=== PATIENT | female | born 1990 ===

== ENCOUNTER 2018-10-13 06:17 | Inpatient (IN) ==
[2018-10-13] MEDS ORDERED: ONDANSETRON 4 MG/2 ML VIAL IV PRN (06:27)
[2018-10-13] MEDS ORDERED: LACTATED RINGERS 250 ML IV ONE (06:27)
[2018-10-13] MEDS ORDERED: LACTATED RINGERS 1,000 ML IV SCH (06:30)
[2018-10-13] MEDS ORDERED: OXYTOCIN/LR 20 UNIT/1,000 ML BAG IV SCH (06:30)
[2018-10-13] MEDS ORDERED: CITRIC ACID/SODIUM CITRATE 30 ML UDCUP PO ONE (06:31)
[2018-10-13 07:00] LABS: Basophils % 0.5 % (0.0-0.8); Eosinophils # 0.1 10*3/uL (0.0-0.87); Eosinophils % 0.9 % (0.00-10.9); Hematocrit 37.3 VOL% (35.7-47.0); Hemoglobin 12.4 GM/DL (12.0-16.0); Immature Granulocytes % 0.4 %; Immature Granulocytes Absolute 0.03 #; Lymphocytes # 2.6 10*3/uL (1.4-4.0); Lymphocytes % 35.3 % (21.3-54.2); Mean Corpuscular HGB Conc 33.2 GM/DL (32-36); Mean Corpuscular Volume 85.9 FL (87-102); Mean Platelet Volume 9.8 FL (9.6-12.0); Monocytes % 5.9 % (1.7-12.7); Platelet Count 222 T/CUMM (130-400); Red Blood Count 4.34 MC/CUMM (3.8-5.5); Red Cell Distribution Width 13.9 % (9.3-17.3); White Blood Count 7.5 T/CUMM (4-12)
[2018-10-13] MEDS ORDERED: ceFAZolin 2,000 MG in PREMIX 1 EACH IV ONE (08:00)
[2018-10-13] MEDS ORDERED: BUPIVACAINE SPINAL 0.75% 2 ML AMP SPINAL ONE (09:12)
[2018-10-13] MEDS ORDERED: BUPIVACAINE 0.5% 50 ML VIAL ONE (09:12)
[2018-10-13] MEDS ORDERED: OXYTOCIN/LR 30 UNIT/1,000 ML BAG IV ONE (09:15)
[2018-10-13] MEDS ORDERED: miSOPROStol 200 MCG TABLET ONE (09:15)
[2018-10-13] MEDS ORDERED: METHYLERGONOVINE 0.2 MG/1 ML AMP ONE (09:16)
[2018-10-13] MEDS ORDERED: CARBOPROST TROMETHAMINE 250 MCG/ML AMP IM ONE (09:16)
[2018-10-13] MEDS ORDERED: OXYTOCIN 10 UNIT/ML VIAL ONE (09:19)
[2018-10-13] MEDS: FAMOTIDINE 20 MG/2 ML VIAL IV SCH (09:29)
[2018-10-13] MEDS ORDERED: OXYTOCIN 10 UNIT/ML VIAL IM ONE (10:04)
[2018-10-13] MEDS ORDERED: DEXTROSE 50% 25 GM/50 ML VIAL IV PRN ×3 (10:15→22:42)
[2018-10-13] MEDS ORDERED: GLUCAGON 1 MG VIAL IM PRN ×3 (10:15→22:42)
[2018-10-13 10:20] LABS: Cord Venous Blood HCO3 23.9 MMOL/L; Cord Venous Blood PCO2 47.8 MMHG; Cord Venous Blood PO2 22.4
[2018-10-13 10:33] LABS: Apearance,Urine CLEAR (Clear); Bacteria,Urine Occasional /HPF (Few); Bilirubin,Urine Negative (Negative); Blood, Urine Negative (Negative); Glucose,Urine (UA) Negative (Negative); Ketones,Urine Negative (Negative); Nitrite,Urine Negative (Negative); Protein,Urine 100 MG/DL; Squamous Epithelial Cell,Urine Occasional /HPF (0-10); Urine Color Yellow (Yellow); Urine Specific Gravity 1.006 (1.001-1.035); Urine Urobilinogen < 2.0 EU/DL (0.2-1.0)
[2018-10-13] MEDS ORDERED: MORPHINE 10 MG/10 ML VIAL ONE (11:12)
[2018-10-13] MEDS ORDERED: PHENYLEPHRINE 1 MG/10 ML SYRINGE IV ONE (11:12)
[2018-10-13] MEDS ORDERED: ONDANSETRON 4 MG/2 ML VIAL ONE (11:12)
[2018-10-13] MEDS: ceFAZolin 1,000 MG in SYRINGE 1 EACH IV SCH (17:20)
[2018-10-13 19:02] LABS: Basophils % 0.3 % (0.0-0.8); Hematocrit 36.3 VOL% (35.7-47.0); Hemoglobin 11.6 GM/DL (12.0-16.0); Immature Granulocytes % 0.6 %; Immature Granulocytes Absolute 0.06 #; Lymphocytes # 1.3 10*3/uL (1.4-4.0); Lymphocytes % 12.3 % (21.3-54.2); Mean Corpuscular Volume 86.8 FL (87-102); Mean Platelet Volume 9.6 FL (9.6-12.0); Monocytes % 4.3 % (1.7-12.7); Neutrophils % 82.5 % (38.7-73.9); Platelet Count 193 T/CUMM (130-400); Red Blood Count 4.18 MC/CUMM (3.8-5.5); Red Cell Distribution Width 13.8 % (9.3-17.3); White Blood Count 10.2 T/CUMM (4-12)
[2018-10-14] MEDS: ceFAZolin 1,000 MG in SYRINGE 1 EACH IV SCH (00:21)
[2018-10-14] MEDS: INSULIN REGULAR 100 UNIT/ML SUBCUT SCH ×4 (01:40→23:30)
[2018-10-14 07:01] LABS: Basophils % 0.4 % (0.0-0.8); Eosinophils # 0.1 10*3/uL (0.0-0.87); Eosinophils % 0.6 % (0.00-10.9); Hematocrit 32.9 VOL% (35.7-47.0); Immature Granulocytes % 0.4 %; Immature Granulocytes Absolute 0.04 #; Lymphocytes # 3.1 10*3/uL (1.4-4.0); Lymphocytes % 31.5 % (21.3-54.2); Mean Corpuscular HGB Conc 33.4 GM/DL (32-36); Mean Corpuscular Volume 85.7 FL (87-102); Mean Platelet Volume 9.7 FL (9.6-12.0); Monocytes % 7.5 % (1.7-12.7); Neutrophils % 59.6 % (38.7-73.9); Platelet Count 177 T/CUMM (130-400); Red Blood Count 3.84 MC/CUMM (3.8-5.5); Red Cell Distribution Width 13.9 % (9.3-17.3); White Blood Count 9.8 T/CUMM (4-12)
[2018-10-14] MEDS ORDERED: IBUPROFEN 800 MG TABLET PO PRN (07:04)
[2018-10-14] MEDS ORDERED: MAGNESIUM HYDROXIDE SUSP 30 ML UDCUP PO PRN (07:05)
[2018-10-14] MEDS ORDERED: IBUPROFEN 800 MG TABLET ONE (07:06)
[2018-10-14] MEDS: FAMOTIDINE 20 MG/2 ML VIAL IV SCH ×2 (07:07→19:17)
[2018-10-14] MEDS: DOCUSATE SODIUM 100 MG CAPSULE PO SCH ×2 (08:55→20:50)
[2018-10-14] MEDS: METOCLOPRAMIDE 10 MG TABLET PO SCH ×3 (12:43→23:34)
[2018-10-15] MEDS: METOCLOPRAMIDE 10 MG TABLET PO SCH ×2 (05:53→18:35)
[2018-10-15] MEDS: INSULIN REGULAR 100 UNIT/ML SUBCUT SCH (05:55)
[2018-10-15] MEDS: FAMOTIDINE 20 MG/2 ML VIAL IV SCH (06:06)
[2018-10-15 07:27] VITALS: BP 144/87
[2018-10-15] MEDS: DOCUSATE SODIUM 100 MG CAPSULE PO SCH (09:44)
[2018-10-15] MEDS ORDERED: DIPH/TET/ACEL PERT BOOSTER VACCINE 0.5 ML VIAL IM ONE (12:55)
== END 2018-10-15 13:30 | disposition home or self-care (01) | DRG 787 ==
LOC: N.LD 06:17 → N.OB 15:51
PROVIDERS: ADMIT Obstetrics & Gynecology; ATTEND Obstetrics & Gynecology
PROC: LDCSECT (ICD-10-PCS; 2018-10-13 08:45)